=== PATIENT | female | born 1945 | race Caucasian/White ===

== ENCOUNTER → 2023-05-21 | Emergency (ER) | payer OTHER ==
[~2023-05-21] MED LIST: ACETAMINOPHEN 500 MG TAB ONE; LEVETIRACETAM 500 MG/5 ML VIAL IV ONE; MUPIROCIN 2% OINT 22GM TUBE TOP ONE; NA CHLORIDE 0.9% 1,000 ML ONE; NA CHLORIDE 0.9% 100 ML ONE; ONDANSETRON 4 MG/2 ML VIAL ONE; TDAP (DIPHTH,PERTUSS(ACELL),TET VAC) 0.5 ML VIAL IMVAC ONE
--- NOTE | 2023-05-21 15:28 | RAD REPORT ---
EXAM DESCRIPTION: CT - CTHCSPWOC - 05/21/2023 3:13 pm CLINICAL HISTORY: Trauma, head and neck injury. Headache;Pain COMPARISON: MRI BRAIN WITHOUT CONTRAST dated 11/27/2007; HEAD BRAIN W O CONTRAST dated 11/26/2007 TECHNIQUE: Axial 5 mm thick images of the head were obtained. Axial 2 mm thick images of the cervical spine were obtained with sagittal and coronal reconstruction images generated and reviewed. All CT scans are performed using dose optimization technique as appropriate and may include automated exposure control or mA/KV adjustment according to patient size. FINDINGS: CT HEAD WITHOUT CONTRAST: Curvilinear hyperdensity in the right frontal lobe best seen on image 24, series 202 concerning for s ubarachnoid hemorrhage. No areas of brain edema or midline shift. Mild chronic small vessel ischemic changes. Right cerebellar encephalomalacia. Mucosal thickening right maxillary sinus.The calvarium is intact. CT CERVICAL SPINE WITHOUT CONTRAST: No fracture or subluxation.No prevertebral soft tissues swelling is identified. Multilevel degenerati ve changes are present in the spine. IMPRESSION: Small volume of subarachnoid hemorrhage at the right frontal lobe. No skull fracture or other acute intracranial findings identified. Right forehead hematoma. Conveyed to Dr. Esparza by Dr Jerad Stiles at 1522 on 05/21/23 No acute fracture traumatic malalignment cervical spine.
--- NOTE | 2023-05-21 15:29 | RAD REPORT ---
EXAM DESCRIPTION: CT - CTFB CLINICAL HISTORY: FACIAL PAIN COMPARISON: No comparisons TECHNIQUE: Axial 2 mm thick images of the face were obtained with sagittal and coronal reconstructio n images. All CT scans are performed using dose optimization technique as appropriate and may include automated exposure control or mA/KV adjustment according to patient size. FINDINGS: No acute facial bone fracture is seen.The mandible is intact. The globes and orbital contents are grossly unremarkable.Thickening in the right maxillary sinus note d. Hematoma at the forehead on the right side. Periapical lucencies associated with the right maxillary first and second molars. IMPRESSION: Negative for facial bone fracture.
--- NOTE | 2023-05-21 15:48 | ER ---
Nurse's Notes [facility] Name: Radha Bean Age: 77 yrs Sex: Female : 1945 Arrival Date: 05/21/2023 Time: 14:16 Bed [id number] Private MD: Diagnosis: Fall from moving wheelchair (powered), initial encounter;Unspecified injury of head, initial encounter;Traumatic subarachnoid hemorrhage without loss of consciousness, initial encounter-RIGHT FRONTAL LOBE;Obesity, unspecified;Abrasion of other part of head-FACIAL;care home (current) use of anticoagulants;Hyperkalemia-5.2 Presentation: 05/21 14:26 Chief complaint: EMS states: Ran into curb, fell out of wheelchair and hit face on hb concrete. Hematoma to forehead, abrasion to bridge of nose, laceration to inside upper lip. Negative LOC. Takes Xarelto. Coronavirus screen: At this time, the client does not indicate any symptoms associated with coronavirus-19. Ebola Screen: No symptoms or risks identified at this time. 14:26 Method Of Arrival: EMS: [facility] 14:26 Initial Sepsis Screen: Does the patient meet any 2 criteria? No. Patient's initial hb sepsis screen is negative. Does the patient have a suspected source of infection? No. Patient's initial sepsis screen is negative. Risk Assessment: Do you want to hurt yourself or someone else? Patient reports no desire to harm self or others. Onset of symptoms was May 21, 2023. 14:26 Acuity: JUSTIN 3 hb Triage Assessment: 14:30 General: Appears uncomfortable, obese, Behavior is calm, cooperative, appropriate for bp age. Pain: Complains of pain in nose and forehead. Injury Description: Abrasion sustained to mouth and nose. Historical: - Allergies: 14:38 Codeine; hb 14:38 Bactrim; hb - Home Meds: 14:38 Xarelto oral [Active]; 2LNC Home O2 [Active]; hb - PMHx: 14:38 COPD; CVA; DVT; Hypertension; hb Historical Immunization: - Administered Vaccines 16:30 Ondansetron IVP 4 mg bp 16:10 Mupirocin Topical Ointment 2 % 1 application bp 16:10 Tetanus Toxoid,Adsorbed IM 0.5 ml bp 3D Animator: [employer]; Exp: TueApr 16 2025; Lot #: [id number]; Series: 1 of 1; Patient Consent: Obtained; Date/Time: ; Source Name: Radha Bean; Source Relationship: Self; Address Information: [address] [place] [address], [facility] [address]; ; Education: Provided; VIS Presented Date: ; VIS Publication: Tetanus/Diphtheria/Pertussis (Tdap/Td) VIS 04/27/2011 (historic) 16:10 NS 0.9% IV 1000 ml bp 16:10 Keppra IV 1000 mg bp 16:10 Acetaminophen PO 1000 mg bp - Immunization history:: Adult Immunizations up to date. - Family history:: not pertinent. - Social history:: Smoking status: Patient denies any tobacco usage or history of. Screenin:[facility] ED Fall Risk Assessment (Adult) History of falling in the last 3 months, bp including since admission No falls in past 3 months (0 pts). Abuse screen: Denies threats or abuse. Denies injuries from another. Nutritional screening: No deficits noted. Tuberculosis screening: No symptoms or risk factors identified. Assessment: 14:30 General: SEE TRIAGE NOTE. bp 16:30 Reassessment: Patient appears in no apparent distress at this time. TRANSFER IN bp PROCESS. Neuro: Level of Consciousness is awake, alert, obeys commands, Oriented to Appropriate for age. 17:00 Reassessment: REPORT TO [facility] ER. bp 17:25 Reassessment: EMS AT B/S FOR TRANSPORT. bp Vital Signs: 14:26 BP 117 / 84; Pulse 66; Resp 16; Temp 98.3; Pulse Ox 100% on 2 lpm NC; Weight 149.69 kg; hb Height 5 ft. 7 in. ; Pain 6/10; 14:30 BP 176 / 69; Pulse 71; Resp 16; Pulse Ox 98% ; bp 16:30 BP 161 / 85; Pulse 72; Resp 18; Pulse Ox 97% ; bp 17:00 BP 133 / 85; Pulse 75; Resp 16; Pulse Ox 100% ; bp 14:26 Body Mass Index 51.68 (149.69 kg, 170.18 cm) hb 14:26 Pain Scale: Adult hb [place] Score: 15:44 Eye Response: spontaneous(4). Motor Response: obeys commands(6). Verbal Response: romeo oriented(5). Total: 15. ED Course: 14:24 Patient arrived in ED. romeo 14:24 Jason Esparza MD is Attending Physician. romeo 14:38 Triage completed. hb 14:40 Arm band placed on. hb 15:15 CT Head C Spine In Process Unspecified. EDMS 15:15 CT Facial Bones W/O Con In Process Unspecified. EDMS 15:31 Colt Manning, SULTANA is Primary Nurse. bp 15:36 initiated a transfer with Greer from the [facility]. eb 15:39 connected the trauma team director clinical applications for [facility] with Dr. Esparza for patient transfer Center. 15:41 administrative approval given by Greer Rivas Rn / patient has been accepted to [facility] ER/ Dr. Seun Irizarry has accepted the patient in transfer/ report to be called to [phone]. 15:54 Chest Single View XRAY In Process Unspecified. EDMS 16:30 Patient has correct armband on for positive identification. Bed in low position. Call bp light in reach. 16:30 No provider procedures requiring assistance completed. Inserted saline lock: 22 gauge bp in right forearm, using aseptic technique. Blood collected. 17:27 Patient transferred, IV remains in place. bp Administered Medications: 16:10 Drug: Mupirocin Topical Ointment 2 % 1 application Topical once Route: Topical; Site: bp affected area; 16:10 Drug: Tetanus Toxoid,Adsorbed IM 0.5 ml IM once; Provide Vaccine Information Statement bp (VIS). {3D Animator: [employer]; Exp: TueApr 16 2025; Lot #: [id number]; Series: 1 of 1; Patient Consent: Obtained; Date/Time: ; Source Name: Radha Bean; Source Relationship: Self; Address Information: [address] [place] [id number]; ; Education: Provided; VIS Presented Date: ; VIS Publication: Tetanus/Diphtheria/Pertussis (Tdap/Td) VIS 04/27/2011 (historic)} Route: IM; Site: right deltoid; 16:10 Drug: NS 0.9% IV 1000 ml IV at 125 ml/hr continuous Route: IV; Rate: 125 ml/hr; Site: bp right forearm; 16:10 Drug: Keppra IV 1000 mg IV at per protocol once Route: IV; Rate: per protocol; Site: bp right forearm; 16:10 Drug: Acetaminophen PO 1000 mg PO once Route: PO; bp 16:30 Drug: Ondansetron IVP 4 mg IVP once; over 2 minutes Route: IVP; Site: right forearm; bp Medication: 16:30 VIS not applicable for this client. bp Outcome: 15:48 ER care complete, transfer ordered by . romeo 17:27 Discharged to 17:27 Condition: stable 17:27 Instructed on the need for transfer, 17:28 Patient left the ED. bp 20:01 Patient left the ED. pf1 Signatures: Dispatcher [employer] EDMS Jason Esparza MD MD cha Baxter, Heather, RN RN Colt Manning, RN RN Nataliya Bobby Pamala, RN RN pf1 Corrections: (The following items were deleted from the chart) 14:43 14:26 Chief complaint: EMS states: Ran into curb, fell out of wheelchair and hit face hb on concrete. Hematoma to forehead, abrasion to bridge of nose, laceration to inside upper lip. hb
--- NOTE | 2023-05-21 15:48 | EDPHYS ---
Physician Documentation [facility] Name: Radha Bean Age: 77 yrs Sex: Female : 1945 Arrival Date: 05/21/2023 Time: 14:16 Bed IW10 Private MD: ED Physician Jason Esparza HPI: 05/21 15:35 This 77 yrs old Female presents to ER via EMS with complaints of FALL OUT OF romeo WHEELCHAIR, HIT HEAD AND FACE. 15:35 The patient or guardian reports injury, pain, swelling, tenderness. The complaints romeo affect the forehead, nose and mouth. Context of injury: The problem was sustained on a street or driveway. Onset: The symptoms/episode began/occurred just prior to arrival. Associated signs and symptoms: Loss of consciousness: This patient did not experience any loss of consciousness. Pertinent positives: injury, nausea. The patient complains of pain to the top of head and forehead. The patient describes the headache as constant. Details of fall: The patient fell from seated position, out of a chair, out of a wheelchair. Associated injuries: The patient sustained injury to the head, abrasion, contusion, hematoma, laceration. Historical: - Allergies: 14:38 Codeine; hb 14:38 Bactrim; hb - Home Meds: 14:38 Xarelto oral [Active]; 2LNC Home O2 [Active]; hb - PMHx: 14:38 COPD; CVA; DVT; Hypertension; hb - Immunization history:: Adult Immunizations up to date. - Family history:: not pertinent. - Social history:: Smoking status: Patient denies any tobacco usage or history of. ROS: 15:35 Constitutional: Negative for fever, chills, and weight loss, Eyes: Negative for injury, romeo pain, redness, and discharge, ENT: Negative for injury, pain, and discharge, Neck: Negative for injury, pain, and swelling, Cardiovascular: Negative for chest pain, palpitations, and edema, Respiratory: Negative for shortness of breath, cough, wheezing, and pleuritic chest pain, Abdomen/GI: Negative for abdominal pain, nausea, vomiting, diarrhea, and constipation, Back: Negative for injury and pain, : Negative for injury, bleeding, discharge, and swelling, MS/Extremity: Negative for injury and deformity, Neuro: Negative for headache, weakness, numbness, tingling, and seizure, Psych: Negative for depression, anxiety, suicide ideation, homicidal ideation, and hallucinations, Allergy/Immunology: Negative for hives, rash, and allergies, Endocrine: Negative for neck swelling, polydipsia, polyuria, polyphagia, and marked weight changes, Hematologic/Lymphatic: Negative for swollen nodes, abnormal bleeding, and unusual bruising, 15:35 Skin: Positive for abrasion(s), hematoma, laceration(s), swelling, of the forehead, Exam: 15:35 Constitutional: This is a well developed, well nourished patient who is awake, alert, romeo and in no acute distress. Eyes: Pupils equal round and reactive to light, extra-ocular motions intact. Lids and lashes normal. Conjunctiva and sclera are non-icteric and not injected. Cornea within normal limits. Periorbital areas with no swelling, redness, or edema. ENT: Nares patent. No nasal discharge, no septal abnormalities noted. Tympanic membranes are normal and external auditory canals are clear. Oropharynx with no redness, swelling, or masses, exudates, or evidence of obstruction, uvula midline. Mucous membranes moist. Neck: Trachea midline, no thyromegaly or masses palpated, and no cervical lymphadenopathy. Supple, full range of motion without nuchal rigidity, or vertebral point tenderness. No Meningismus. Chest/axilla: Normal chest wall appearance and motion. Nontender with no deformity. No lesions are appreciated. Cardiovascular: Regular rate and rhythm with a normal S1 and S2. No gallops, murmurs, or rubs. Normal PMI, no JVD. No pulse deficits. Respiratory: Lungs have equal breath sounds bilaterally, clear to auscultation and percussion. No rales, rhonchi or wheezes noted. No increased work of breathing, no retractions or nasal flaring. Abdomen/GI: Soft, non-tender, with normal bowel sounds. No distension or tympany. No guarding or rebound. No evidence of tenderness throughout. Back: No spinal tenderness. No costovertebral tenderness. Full range of motion. Female : Normal external genitalia. Skin: Warm, dry with normal turgor. Normal color with no rashes, no lesions, and no evidence of cellulitis. MS/ Extremity: Pulses equal, no cyanosis. Neurovascular intact. Full, normal range of motion. Neuro: Awake and alert, GCS 15, oriented to person, place, time, and situation. Cranial nerves II-XII grossly intact. Motor strength 5/5 in all extremities. Sensory grossly intact. Cerebellar exam normal. Normal gait. Psych: Awake, alert, with orientation to person, place and time. Behavior, mood, and affect are within normal limits. 15:35 Head/face: Noted is abrasion(s), contusion, hematoma, that is moderate, of the forehead, nose and mouth, 15:35 ECG was reviewed by the Attending Physician. Vital Signs: 14:26 BP 117 / 84; Pulse 66; Resp 16; Temp 98.3; Pulse Ox 100% on 2 lpm NC; Weight 149.69 kg; hb Height 5 ft. 7 in. ; Pain 6/10; 14:30 BP 176 / 69; Pulse 71; Resp 16; Pulse Ox 98% ; bp 16:30 BP 161 / 85; Pulse 72; Resp 18; Pulse Ox 97% ; bp 17:00 BP 133 / 85; Pulse 75; Resp 16; Pulse Ox 100% ; bp 14:26 Body Mass Index 51.68 (149.69 kg, 170.18 cm) hb 14:26 Pain Scale: Adult hb [place] Coma Score: 15:44 Eye Response: spontaneous(4). Motor Response: obeys commands(6). Verbal Response: romeo oriented(5). Total: 15. MDM: 14:24 Patient medically screened. romeo 14:26 Patient medically screened. romeo 15:44 Differential diagnosis: Contusion of Hematoma on Laceration of Intracranial bleed- romeo Concussion without LOC. cerebral contusion, subarachnoid bleed, subdural hematoma, traumatic injuries. Differential diagnosis: abrasion, closed head injury, contusion, fracture, laceration, multiple trauma, sprain, strain. Data reviewed: vital signs, nurses notes, EMS record, lab test result(s), EKG, radiologic studies, CT scan, plain films. Consideration of Admission/Observation Escalation of care including admission/observation considered. I considered the following discharge prescriptions or medication management in the emergency department Medications were administered in the Emergency Department. See MAR. Independent interpretation of the following test(s) in the Emergency Department EKG: See my EKG interpretation above. Test considered but Not performed: MRI: NO MRI BRAIN. Care significantly affected by the following chronic conditions: Hypertension, Chronic Obstructive Pulmonary Disease, Obesity, CVA. 05/21 15:29 Order name: CBC with Diff; Complete Time: 18:55 [facility] 05/21 15:29 Order name: Comprehensive Metabolic Panel; Complete Time: 18:56 [facility] 05/21 15:29 Order name: PT-INR; Complete Time: 18:56 [facility] 05/21 15:29 Order name: Ptt, Activated; Complete Time: 18:56 [facility] 05/21 15:29 Order name: BNP; Complete Time: 18:56 [facility] 05/21 15:29 Order name: Troponin HS; Complete Time: 18:56 [facility] 05/21 14:39 Order name: CT Head C Spine; Complete Time: 15:31 [facility] 05/21 14:39 Order name: CT Facial Bones W/O Con; Complete Time: 18:56 [facility] 05/21 15:29 Order name: Chest Single View XRAY; Complete Time: 18:56 [facility] 05/21 15:29 Order name: EKG; Complete Time: 15:29 [facility] 05/21 14:39 Order name: Ice pack; Complete Time: 16:36 [facility] 05/21 15:29 Order name: EKG - Nurse/Tech; Complete Time: 16:05 [facility] EC:35 Rate is 68 beats/min. Rhythm is regular. QRS [place] is Normal. SD interval is normal. QRS romeo interval is normal. QT interval is normal. No Q waves. T waves are Normal. No ST changes noted. Clinical impression: NSR w/ Non-specific ST/T Changes and No evidence of ischemia. Interpreted by me. Reviewed by me. Administered Medications: 16:10 Drug: Mupirocin Topical Ointment 2 % 1 application Topical once Route: Topical; Site: bp affected area; 16:10 Drug: Tetanus Toxoid,Adsorbed IM 0.5 ml IM once; Provide Vaccine Information Statement bp (VIS). {Speech Language Pathologist: Re.Mu; Exp: TueApr 16 2025; Lot #: [id number]; Series: 1 of 1; Patient Consent: Obtained; Date/Time: ; Source Name: Radha Bean; Source Relationship: Self; Address Information: [address] [place] [id number]; ; Education: Provided; VIS Presented Date: ; VIS Publication: Tetanus/Diphtheria/Pertussis (Tdap/Td) VIS 04/27/2011 (historic)} Route: IM; Site: right deltoid; 16:10 Drug: NS 0.9% IV 1000 ml IV at 125 ml/hr continuous Route: IV; Rate: 125 ml/hr; Site: bp right forearm; 16:10 Drug: Keppra IV 1000 mg IV at per protocol once Route: IV; Rate: per protocol; Site: bp right forearm; 16:10 Drug: Acetaminophen PO 1000 mg PO once Route: PO; bp 16:30 Drug: Ondansetron IVP 4 mg IVP once; over 2 minutes Route: IVP; Site: right forearm; bp Disposition Summary: 05/21/23 15:48 Transfer Ordered Notes: Transfer Location: [facility] romeo Reason: Higher level of care romeo Condition: Fair romeo Problem: new romeo Symptoms: have improved romeo Accepting Physician: TO ER, [facility](05/21/23 20:01) pf1 Diagnosis - Fall from moving wheelchair (powered), initial encounter romeo - Unspecified injury of head, initial encounter romeo - Traumatic subarachnoid hemorrhage without loss of consciousness, initial encounter romeo - RIGHT FRONTAL LOBE - Obesity, unspecified romeo - Abrasion of other part of head - FACIAL romeo - terminal worker (current) use of anticoagulants romeo - Hyperkalemia - 5.2 romeo Forms: - Medication Reconciliation Form romeo - SBAR form romeo Critical care time excluding procedures: 15:45 Critical care time: Bedside Care: 20 minutes, Consultation: 10 minutes, Family romeo Intervention: 5 minutes. Total time: 35 minutes Signatures: Dispatcher [employer] EDJason Potter MD MD cha Attema, Lee, MALTED MILK MIXER-C MALTED MILK MIXER-Cla1 Ama Bennett RN RN Colt Manning RN RN Samina Heart RN RN pf1 Corrections: (The following items were deleted from the chart) 15:48 15:48 TO ER, [facility] romeo romeo 15:49 15:48 TO ER, [facility] romeo romeo 17:28 15:49 TO ER, [facility] romeo bp 18:57 17:28 TO ER, [facility] bp romeo 20:01 18:57 TO ER, [facility] romeo pf1
--- NOTE | 2023-05-21 16:02 | RAD REPORT ---
EXAM DESCRIPTION: RAD - Chest Single View - 05/21/2023 3:53 pm CLINICAL HISTORY: COUGH COMPARISON: CHEST SINGLE VIEW dated 11/26/2007 FINDINGS: Lines: None. Lungs: No evidence of edema or pneumonia. Pleural: No significant pleural effusions or pneumothorax. Cardiac: Enlarged cardiopericardial silhouette. Mediastinum: Within normal limits. Bones: No acute fractures. Other: None IMPRESSION: No acute cardiopulmonary disease.
[2023-05-21 16:31] LABS: Absolute Lymphocytes (CBC) 1.4 K/uL (0.7-4.9); Hematocrit 47.8 % (36.0-45.0); Lymphocytes % 16.4 % (15.3-44.8); MCV 89.4 fL (80-100); Platelets 213 thou/uL (152-406); RBC Red Blood Cell Count 5.34 M/uL (3.86-4.86)
[2023-05-21 16:41] LABS: Protime INR 1.57
[2023-05-21 16:55] LABS: Albumin 3.4 g/dL (3.4-5.0); Bilirubin Total 0.5 mg/dL (0.2-1.0); Potassium 5.2 mEq/L (3.5-5.1); Protein, Total 7.8 g/dL (6.4-8.2); Troponin High Sensitivity 5.3 pg/mL (<58.9)
[2023-05-21 17:40] VITALS: TEMP 98.3; O2SAT 100
[2023-05-21 18:00] VITALS: BP 133/85
--- NOTE | 2023-05-23 11:00 | EKG ---
Test Date: 2023-05-21 Test Time: 15:41:25 Crotch Breaker: RADHA MEASUREMENT RESULTS: Intervals: Rate: 68 IN: 186 QRSD: 84 QT: 404 QTc: 429 [place]: P: 49 IN: 186 QRS: 9 T: 35 INTERPRETIVE STATEMENTS: Normal sinus rhythm Low voltage QRS Cannot rule out Anterior infarct, age undetermined Abnormal ECG Compared to ECG 11/27/2007 06:02:57 Low QRS voltage now present Myocardial infarct finding still present Electronically Signed On 05-23-23 10:56:45 FURNITURE RESTORER by Brock Box
== END ==
LOC: ER 14:16
DX: S06.6X0A Traumatic subarachnoid hemorrhage without loss of consciousness, initial encounter (principal); V00.811A Fall from moving wheelchair (powered), initial encounter; E87.5 Hyperkalemia; E66.9 Obesity, unspecified; Z68.43 Body mass index [BMI] 50.0-59.9, adult; Z79.01 Long term (current) use of anticoagulants; Z23 Encounter for immunization; Z86.718 Personal history of other venous thrombosis and embolism; I10 Essential (primary) hypertension; J44.9 Chronic obstructive pulmonary disease, unspecified; Z99.81 Dependence on supplemental oxygen; Z88.1 Allergy status to other antibiotic agents; Z88.5 Allergy status to narcotic agent
CPT/HCPCS: 93005; 85025; 36415; 85610; 85730; 84484; 80053; 83880; 70450; 72125; 70486; 76377; 71045; 90471; 96375; 96374; 99284; J1953; J2405; J7030

== ENCOUNTER 2025-01-03 14:58 | Inpatient (IN) | payer OTHER ==
[2025-01-03] MEDS ORDERED: MELATONIN 5 MG TABLET PO PRN (21:10)
[2025-01-03] MEDS ORDERED: ONDANSETRON 4 MG (ODT) TAB PO PRN (21:10)
[2025-01-03] MEDS ORDERED: HYDROCODONE/APAP 5/325 MG TAB PO PRN (21:10)
[2025-01-03 21:34] VITALS: BMI 48.1
--- NOTE | 2025-01-03 22:27 | RAD REPORT ---
EXAMINATION: ONE VIEW CHEST XR CLINICAL INDICATION: r/o pneumonia TECHNIQUE: Frontal chest projection is submitted. Examination is limited by patient positioning and t echnique. COMPARISON: 05/21/2023 FINDINGS: Mild pulmonary edema. The heart is moderately enlarged. No displaced fractures identified. Tortuous thoracic aorta. IMPRESSION: Mild CHF.
[2025-01-03] MEDS: RIVAROXABAN 10 MG TABLET PO SCH (22:28)
--- NOTE | 2025-01-03 22:28 | RAD REPORT ---
EXAMINATION: XR RIGHT ANKLE CLINICAL INDICATION: . r/oo fracture TECHNIQUE:Two view radiograph of the right ankle were obtained. COMPARISON: No prior exam. FINDINGS: Moderate soft tissue swelling about the ankle. Flattening and sclerosis is seen of the tars al navicular. No acute fracture. Moderate calcaneal spurs.
[2025-01-03] MEDS: ATORVASTATIN 10 MG TAB PO SCH (22:29)
[2025-01-03] MEDS: GABAPENTIN 300 MG CAP PO SCH (22:29)
[2025-01-04 00:27] LABS: Sqamous Epithelial <5 /HPF (None Seen); Urine Culture Reflex Order REFLEXED; Urine Microscopic Reflex YN ORDER UMIC; Urine WBC Clump Rare /HPF (None Seen)
[2025-01-04] MEDS: ACETAMINOPHEN 500 MG TAB PO PRN (06:25)
[2025-01-04 07:09] LABS: Absolute Lymphocytes (CBC) 1.4 K/uL (0.7-4.9); Hematocrit 32.4 % (36.0-45.0); Hemoglobin 10.8 g/dL (12.0-15.0); MCH 29.5 pg (27.0-35.0); MCHC 33.2 g/dL (32.0-36.0); MCV 89.0 fL (80-100); MPV 7.5 fL (7.6-11.3); Nucleated RBC Absolute Count 0.0 (0-0); Nucleated Red Blood Cells % 0.1 % (0-0); RBC Red Blood Cell Count 3.64 M/uL (3.86-4.86); White Blood Count 7.20 thou/uL (4.3-10.9)
[2025-01-04 07:28] LABS: Albumin 2.6 g/dL (3.4-5.0); Anion Gap 4.1 mEq/L (5.0-15.0); BUN Blood Urea Nitrogen 17.0 mg/dL (7-18); Glucose Level 111.0 mg/dL (74-106); Magnesium 1.8 mg/dL (1.6-2.4); NT PRO-BNP 196.0 pg/mL (<450); Potassium 4.1 mEq/L (3.5-5.1); Prealbumin 15.8 mg/dL (20-40)
[2025-01-04] MEDS: OSTEOFLEX PO SCH (08:00)
[2025-01-04] MEDS: AMLODIPINE 10 MG TAB PO SCH (08:00)
[2025-01-04] MEDS ORDERED: RIVAROXABAN 10 MG TABLET PO SCH (08:00)
[2025-01-04] MEDS: DOCUSATE NA/SENNA CONC 1 TAB PO SCH ×2 (08:00→19:22)
[2025-01-04] MEDS: DOCOSAHEXANOIC AC/EPA 1000 MG PO SCH (08:39)
[2025-01-04] MEDS: ASPIRIN EC 81 MG TAB PO SCH (08:39)
[2025-01-04] MEDS: OCUVITE (VIT A,C & E/LUTEIN/MINERAL) TABLET PO SCH (08:39)
[2025-01-04] MEDS: BENAZEPRIL 20 MG TAB PO SCH (08:39)
[2025-01-04] MEDS: LACTOBACILLUS/ACIDOPHILUS TAB PO SCH (08:39)
[2025-01-04] MEDS: CRANBERRY FRUIT EXTRACT 425 MG CAPSULE PO SCH (08:39)
[2025-01-04] MEDS ORDERED: DOCUSATE NA/SENNA CONC 1 TAB PO PRN (08:45)
[2025-01-04] MEDS: NYSTATIN PWDR 100000 UNIT/GM TOP SCH (12:36)
[2025-01-04] MEDS: BUPROPRION HCL S.R. 150MG TAB PO SCH (12:36)
[2025-01-04] MEDS: LIDOCAINE 4% PATCH TOP SCH (12:36)
--- NOTE | 2025-01-04 14:16 | P.RH.PN ---
Estimated Length of Stay: 12 Expected Discharge Date: 01/10/25 Family Support: Yes [employer] In [employer] Goal: Mobility, Transfers, Self Care Vital Signs: Last Vital Signs Temp 98.1 F 01/04/25 07:50 Pulse 79 01/04/25 10:39 Resp 16 01/04/25 07:50 BP 94/59 L 01/04/25 10:39 Pulse Ox 95 01/04/25 07:50 Laboratory: Laboratory Last Values WBC 7.20 thou/uL (4.3-10.9) 01/04/25 06:58 RBC 3.64 M/uL (3.86-4.86) L 01/04/25 06:58 Hgb 10.8 g/dL (12.0-15.0) L 01/04/25 06:58 Hct 32.4 % (36.0-45.0) L 01/04/25 06:58 MCV 89.0 fL (80-100) 01/04/25 06:58 MCH 29.5 pg (27.0-35.0) 01/04/25 06:58 MCHC 33.2 g/dL (32.0-36.0) 01/04/25 06:58 RDW 14.5 % (12.1-15.2) 01/04/25 06:58 Plt Count 172 thou/uL (152-406) 01/04/25 06:58 MPV 7.5 fL (7.6-11.3) L 01/04/25 06:58 Neutrophils % 66.4 % (41.7-73.7) 01/04/25 06:58 Lymphocytes % 19.5 % (15.3-44.8) 01/04/25 06:58 Monocytes % 10.9 % (3.3-12.3) 01/04/25 06:58 Eosinophils % 2.7 % (0-4.4) 01/04/25 06:58 Basophils % 0.5 % (0-1.3) 01/04/25 06:58 Absolute Neutrophils 4.8 K/uL (1.8-8.0) 01/04/25 06:58 Absolute Lymphocytes 1.4 K/uL (0.7-4.9) 01/04/25 06:58 Absolute Monocytes 0.8 K/uL (0.1-1.3) 01/04/25 06:58 Absolute Eosinophils 0.2 K/uL (0-0.5) 01/04/25 06:58 Absolute Basophils 0.0 K/uL (0-0.5) 01/04/25 06:58 Sodium 139 mEq/L (136-145) 01/04/25 06:58 Potassium 4.1 mEq/L (3.5-5.1) 01/04/25 06:58 Chloride 107 mEq/L (98-107) 01/04/25 06:58 Carbon Dioxide 32 mEq/L (21-32) 01/04/25 06:58 Anion Gap 4.1 mEq/L (5.0-15.0) L 01/04/25 06:58 BUN 17 mg/dL (7-18) 01/04/25 06:58 Creatinine 0.63 mg/dL (0.55-1.02) 01/04/25 06:58 Est GFR (CKD-EPI) 90 ml/min (=/>90) 01/04/25 06:58 Glucose 111 mg/dL (74-106) H 01/04/25 06:58 Calcium 8.9 mg/dL (8.5-10.1) 01/04/25 06:58 Magnesium 1.8 mg/dL (1.6-2.4) 01/04/25 06:58 NT-Pro-B Natriuret Pep 196 pg/mL (<450) 01/04/25 06:58 Albumin 2.6 g/dL (3.4-5.0) L 01/04/25 06:58 Prealbumin 15.8 mg/dL (20-40) L 01/04/25 06:58 Urine Color Light-yellow (Yellow) 01/03/25 22:30 Urine Clarity Extremely turbid (Clear) H 01/03/25 22:30 Urine pH 5.5 (5.0-7.0) 01/03/25 22:30 Ur Specific [place] 1.016 (1.005-1.030) 01/03/25 22:30 Glucose (UA)(Auto) Negative (Negative) 01/03/25 22:30 Urine Ketones Negative (Negative) 01/03/25 22:30 Urine Blood Negative (Negative) 01/03/25 22: Urine Nitrite 2+ (Negative) H 01/03/25 22:30 Urine Bilirubin Negative (Negative) 01/03/25 22:30 Urine Urobilinogen Normal (Normal) 01/03/25 22:30 Ur Leukocyte Esterase 250 Rebekah/uL (Negative) H 01/03/25 22:30 Urine RBC <5 /HPF (None Seen) 01/03/25 22:30 Urine WBC 20-50 /HPF (<5) H 01/03/25 22:30 Urine WBC Clumps Rare /HPF (None Seen) 01/03/25 22:30 Ur Squamous Epith Cells <5 /HPF (None Seen) 01/03/25 22:30 Urine Bacteria <20 /HPF (<20) 01/03/25 22:30 Urine Mucus Slight /HPF (None Seen) 01/03/25 22:30 Urine Culture Reflexed Reflexed 01/03/25 22:30 Urine Total Protein Negative (Negative) 01/03/25 22:30 Weight: 307 lb 1.663 oz Physician Update: Labs reviewed and are stable. Multiple fractures including 3 ribs and sternum. Fully oriented. Right foot 9/10 on the left foot, 8/10 right foot pain. Poor oxygenation. BP after walking 89/60 with rate of 88. Min to mod assist bed mobility and transfers, mod assist STS. Max assist without walker. Refused stairs and simulated car transfers. WC 50' with min assist dependent. Independent with eating, min assist upper body and mod assist lower body dressing. Will adjust pain meds by increasing gabapentin by 2. Comment: bruising on lt chest , rt chest/abd , both legs , both feet ,patria hands and arms Summary: Patient's care plan and long term care administrator goals have been reviewed and revised as necessary. Please see the Rehabilitation Signature page for all necessary signatures.
[2025-01-04] MEDS: GLUCOSAM/CHONDROI 500mg-400mg PO SCH (19:21)
[2025-01-04] MEDS: GABAPENTIN 300 MG CAP PO SCH (19:22)
[2025-01-04] MEDS ORDERED: DOCUSATE NA 100 MG CAP PO SCH (20:00)
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
[2025-01-05] MEDS: DOCUSATE NA 100 MG CAP PO SCH (08:44)
[2025-01-05] MEDS: MAGNESIUM HYDROXIDE 8% 30 ML PO PRN (16:18)
[2025-01-05] MEDS: ENSURE ENLIVE 237 ML CAN PO SCH (20:46)
[2025-01-06] MEDS ORDERED: DOCUSATE NA 100 MG CAP PO PRN (05:53)
--- NOTE | 2025-01-06 07:08 | RAD REPORT ---
EXAM: AP view(s) of the abdomen Abdomen 1 View (KUB) HISTORY: r/o constipation COMPARISON: None FINDINGS: Nonspecific bowel gas pattern.. Limited by body habitus. Suspect moderate formed stool. No suspicious calcifications are seen. No acute osseous abnormality. Other: Gastrostomy tube. IMPRESSION: Limited by body habitus. Suspect moderate colonic stool. Nonspecific bowel gas pattern.
[2025-01-06] MEDS: DOCUSATE NA/SENNA CONC 1 TAB PO SCH (08:25)
[2025-01-07] MEDS: BISACODYL 10 MG RECTAL SUPP PR PRN (06:08)
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
--- NOTE | 2025-01-07 13:38 | RAD REPORT ---
EXAMINATION: Foot Right 3 View VIEWS: Three views CLINICAL INDICATION: Female, 79 years old. fracture COMPARISON: No prior exams IMPRESSION: Mildly displaced acute appearing fractures involving the second, third, and fourth distal metatarsal diaphyses. There is up to one half shaft width of maximal displacement which involves the third metatarsal. No significant angulation. No intra-articular extension. Osteopenia. Moderate midfoot deg enerative changes with small and sclerotic navicular bone calcaneal spurs..
--- NOTE | 2025-01-07 13:39 | RAD REPORT ---
EXAM: Foot Left 3 View HISTORY: fracture COMPARISON: None FINDINGS: Bones: No acute fracture identified. Osteopenia. Alignment:No significant malalignment. Degenerative changes:Moderate midfoot degenerative changes. Calcaneal spurs. Other: n/a IMPRESSION: No acute osseous abnormality.
[2025-01-07] MEDS ORDERED: DICLOFENAC SODIUM TOP PRN (14:37)
[2025-01-07] MEDS: AMLODIPINE 10 MG TAB PO SCH (20:29)
[2025-01-07] MEDS: CRANBERRY FRUIT EXTRACT 425 MG CAPSULE PO SCH (20:29)
--- NOTE | 2025-01-08 01:53 | PN ---
Date of Progress Note: 01/07/2025 Time: 1:45 p.m. Subjective: Ms. Bean is resting in a chair between therapy sessions. She did have a complaint of p ain in the thumb, index, and third finger, likely related to using a wheelchair and the pain and symp toms are consistent with carpal tunnel. She has numbness and tingling in that distribution, especial ly with flexion-extension activities and rolling the wheelchair and using the walker. She was advise d to get a wrist splint, which may be obtained on for both arms, especially at night and when mobiliz ing wheelchair and she may apply the Voltaren cream to the wrist area along with a 4% lidocaine, whic h was ordered to help with the pain at the wrist. Objective: Otherwise in terms of objective, no signs of pain in the wrist. She does have some pain in the rib area, where she has fracture in sternal area. Also, fracture is there. Especially when c oughing or Valsalva maneuvers were performed, she has some pain in the rib area and pain in the ankle s. She did have today foot x-ray to rule out any worsening fractures. The x-ray did show mildly dis placed acute appearing fracture in the second, third, and fourth distal metatarsal diaphyses and ther e is a half shaft width of maximal displacement, which involves the third metatarsal. This is on the right side. There is no significant angulation. No intra-articular extension. There is osteopenia . There were moderate midfoot degenerative changes with small sclerotic clavicular bone calcaneal sp urs seen. For the left foot, no acute osseous abnormalities. No significant malalignment. No acute fractures. Noted she did have also a KUB study done on the and the study was limited by body mir bitus and suspected moderate colonic stool, nonspecific bowel gas pattern. She was seen by Dr. Tirado on the Podiatry Service and did debridement of the toenails at the bedside. Physical Examination: Vital Signs: Blood pressure 138/65, pulse 79, respiratory rate of 16, temperature is 98.4, oxygen sa turation 95% on room air. General: Ms. Bean again is resting comfortably in chair. She has significant obesity and BMI of 48 , and has difficulty with mobilizing herself in the wheelchair. She has carpal tunnel symptoms likel y related to pushing the wheelchair and using the rolling walker. She was advised to use the wrist s plints and apply topical analgesic to the wrist. Medications: She will continue with melatonin, Ocuvite, Ensure, Zofran, Xarelto for atrial fibrillat ion 10 mg at bedtime, Senokot for constipation. Continue with fish oil, gabapentin now 600 mg twice daily, Wellbutrin to continue. She has diclofenac cream on the wrists and the aspirin for stroke ris k reduction, Norvasc at bedtime due to low blood pressures in the daytime. When standing up, she did have mild orthostasis there and again the plan will be to have the physical and occupational therapy continue. We will make adjustments in her medication regimen as noted. Progress Made With Physical, Occupational, And Speech Therapy: With physical therapy today, she did multiple [id number] transfers contact guard assistance, stand pivot transfers with conta ct guard assistance. She was able to use a Rollator and mobilized 60 feet 4 times and 25 feet once w ith contact guard assistance. She also did wheelchair mobilization 75 feet twice with standby assist ance. Regarding occupational therapy, she uses an assistive device for lower body dressing. Success fully did so using the dressing stick don and doff her socks, standby assistance for using the left h and to retrieve a sock from the floor. Assessment And Plan: Ms. Bean is a 79-year-old patient in rehabilitation unit with multiple fractur es, traumatic fractures of the legs, sternal fracture, ankle fracture, and has morbid obes ity in addition to depression, constipation, dyslipidemia, stroke risk, of course moderate to severe pain. She has carpal tunnel symptoms both bilaterally. She has mild protein malnutrition, fibrillat ion. Plan will be to continue with physical and Occupational therapy 3 hours a day, 5 of 7 days and a list of comorbid condition medications will be continued as well. HIPOLITO/CJ Voice ID: [id number] Report ID: [id number]
[2025-01-08] MEDS: ACETAMINOPHEN 500 MG TAB PO SCH (08:45)
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
[2025-01-08] MEDS: TRAMADOL HCL 50 MG TAB PO PRN (14:21)
[2025-01-08] MEDS: DICLOFENAC SODIUM TOP SCH (14:22)
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
[2025-01-09] MEDS: MAGNESIUM HYDROXIDE 8% 30 ML PO ONE (19:35)
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
[2025-01-10] MEDS: LORAZEPAM 0.5 MG TABLET PO ONE (08:49)
[2025-01-10 08:55] LABS: Absolute Lymphocytes (CBC) 1.4 K/uL (0.7-4.9); Hematocrit 32.1 % (36.0-45.0); Hemoglobin 10.6 g/dL (12.0-15.0); MCH 29.4 pg (27.0-35.0); MCHC 33.1 g/dL (32.0-36.0); MCV 88.7 fL (80-100); MPV 7.5 fL (7.6-11.3); Nucleated RBC Absolute Count 0.0 (0-0); Nucleated Red Blood Cells % 0.2 % (0-0); RBC Red Blood Cell Count 3.62 M/uL (3.86-4.86); White Blood Count 8.20 thou/uL (4.3-10.9)
[2025-01-10 08:56] LABS: Albumin 2.8 g/dL (3.4-5.0); Anion Gap 7.9 mEq/L (5.0-15.0); BUN Blood Urea Nitrogen 30.0 mg/dL (7-18); Glucose Level 149.0 mg/dL (74-106); Magnesium 2.2 mg/dL (1.6-2.4); Potassium 3.9 mEq/L (3.5-5.1); Prealbumin 27.5 mg/dL (20-40)
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
[2025-01-12] MEDS: LORAZEPAM 0.5 MG TABLET PO PRN (16:31)
[2025-01-14 19:52] VITALS: TEMP 97.5
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
[2025-01-15 07:53] VITALS: BP 173/81
[2025-01-15 09:41] LABS: Urine Crystals Unidentified Few /HPF (None Seen); Urine Culture Reflex Order REFLEXED; Urine Microscopic Reflex YN ORDER UMIC; Urine WBC Clump Few /HPF (None Seen); Urine Yeast (Budding) Occasional /HPF (None Seen)
[2025-01-15 12:33] VITALS: O2SAT 93
== END 2025-01-15 10:00 | disposition home health service (06) | DRG 560 ==
LOC: 5TH 19:53
PROVIDERS: ADMIT Psychiatry & Neurology Neurology with Special Qualifications in Child Neurology; ATTEND Psychiatry & Neurology Neurology with Special Qualifications in Child Neurology
PROC: 0HBRXZZ Excision of Toe Nail, External Approach (ICD-10-PCS; principal; 2025-01-07)
PROC: 0HBRXZZ Excision of Toe Nail, External Approach (ICD-10-PCS; 2025-01-07)
PROC: 0HBRXZZ Excision of Toe Nail, External Approach (ICD-10-PCS; 2025-01-07)
PROC: 0HBRXZZ Excision of Toe Nail, External Approach (ICD-10-PCS; 2025-01-07)
PROC: 0HBRXZZ Excision of Toe Nail, External Approach (ICD-10-PCS; 2025-01-07)
PROC: 0HBRXZZ Excision of Toe Nail, External Approach (ICD-10-PCS; 2025-01-07)
PROC: 0HBRXZZ Excision of Toe Nail, External Approach (ICD-10-PCS; 2025-01-07)
PROC: 0HBRXZZ Excision of Toe Nail, External Approach (ICD-10-PCS; 2025-01-07)
PROC: 0HBRXZZ Excision of Toe Nail, External Approach (ICD-10-PCS; 2025-01-07)
PROC: 0HBRXZZ Excision of Toe Nail, External Approach (ICD-10-PCS; 2025-01-07)
DX: S22.41XD Multiple fractures of ribs, right side, subsequent encounter for fracture with routine healing (principal); E44.1 Mild protein-calorie malnutrition; Z68.42 Body mass index [BMI] 45.0-49.9, adult; S82.891D Other fracture of right lower leg, subsequent encounter for closed fracture with routine healing; S92.301D Fracture of unspecified metatarsal bone(s), right foot, subsequent encounter for fracture with routine healing; S92.302D Fracture of unspecified metatarsal bone(s), left foot, subsequent encounter for fracture with routine healing; S22.20XD Unspecified fracture of sternum, subsequent encounter for fracture with routine healing; G31.84 Mild cognitive impairment of uncertain or unknown etiology; G56.03 Carpal tunnel syndrome, bilateral upper limbs; M25.539 Pain in unspecified wrist; M79.646 Pain in unspecified finger(s); R20.0 Anesthesia of skin; R20.2 Paresthesia of skin; M79.89 Other specified soft tissue disorders; M85.80 Other specified disorders of bone density and structure, unspecified site; F41.9 Anxiety disorder, unspecified; F32.A Depression, unspecified; R11.0 Nausea; K59.00 Constipation, unspecified; K21.9 Gastro-esophageal reflux disease without esophagitis; G47.00 Insomnia, unspecified; I10 Essential (primary) hypertension; I48.91 Unspecified atrial fibrillation; E78.5 Hyperlipidemia, unspecified; E66.01 Morbid (severe) obesity due to excess calories; Z79.01 Long term (current) use of anticoagulants
CPT/HCPCS: 36415; 71045; 74018; 80048; 81001; 82040; 83735; 83880; 84134; 85025; 87077; 87086; 87088; 87186; 94660; 94760; 97110; 97116; 97163; 97165; 97530; 97542; J2003